=== PATIENT | male | born 1960 | race Two or more races ===

== ENCOUNTER 2022-11-28 08:23 | Outpatient (CLI) | payer BC ==
[2022-11-28 08:58] LABS: HEMATOCRIT 44.4 % (36.7-47.1); MEAN CORPUSCULAR HEMOGLOBIN 31.8 uug (23.8-33.4); MEAN CORPUSCULAR VOLUME 96.1 fL (73.0-96.2); PLATELET COUNT (AUTO) 274 K/uL (152-348)
[2022-11-28 09:23] LABS: BILIRUBIN,DIRECT 0.1 mg/dL (0.0-0.2); BILIRUBIN,TOTAL 0.5 mg/dL (0.2-1.0); POTASSIUM 4.1 mmol/L (3.5-5.1); TOTAL PROTEIN, SERUM 7.9 g/dL (6.4-8.2)
[2022-11-28 09:51] LABS: *BILIRUBIN,URIN 1+ (NEGATIVE); *BLOOD, URINE 3+ (NEGATIVE); *CLARITY,URINE CLOUDY (CLEAR); *COLOR,URINE Brown (YELLOW); *KETONES,URINE 2+ (NEGATIVE); *UROBILINOGEN,URINE 0.2 E.U./dl (NORMAL); LEUKOCYTE ESTERASE ,URINE NEGATIVE (NEGATIVE); NITRITE, URINE NEGATIVE (NEGATIVE); PH,URINE 5.5 (5.0-8.0); UGLUCOSE NEGATIVE (NEGATIVE)
[2022-11-28 11:45] LABS: BACTERIA,URINE MODERATE /HPF (NONE SEEN); RBC,URINE 20-50 /HPF (0-3); SQUAMOUS EPITHELIAL CELL,UR NONE SEEN /HPF (NONE SEEN)
[2022-11-29] MEDS ORDERED: BLOO-1730 MC ×2 (21:17)
[2022-11-29] MEDS ORDERED: SULF1TAB48 PO (21:21)
== END 2022-11-28 23:59 | disposition home or self-care (01) ==
LOC: LAB 08:23
PROVIDERS: ATTEND Physician Assistant
DX: R30.0 Dysuria (principal); E11.8 Type 2 diabetes mellitus with unspecified complications; R31.9 Hematuria, unspecified; E66.9 Obesity, unspecified; R10.9 Unspecified abdominal pain; R03.0 Elevated blood-pressure reading, without diagnosis of hypertension; Z86.16 Personal history of COVID-19
CPT/HCPCS: 36415; 84153; 85025

== ENCOUNTER 2022-11-29 19:07 | Emergency (ER) | payer BC ==
[~2022-11-29] VITALS: Ht 175.3 cm; Wt 86.2 kg
--- NOTE | 2022-11-29 19:40 | NUR ---
PATIENT WALKED TO ER WITH STEADY GAIT C/O DIZZINESS X1.5 WKS AND ABD PAIN X3 WEEKS. PATIENT IS A/OX4, NAD NOTED.
[2022-11-29] MEDS ORDERED: IOHEXOL 300MG/ML 100 ML INFUS..BTL ONE (20:14)
[2022-11-29] MEDS ORDERED: SWABABLE VALVE TRANSFER SET EA MC ONE (20:14)
[2022-11-29] MEDS ORDERED: IV NORMAL SALINE 250 ML IV ONE (20:15)
[2022-11-29] MEDS ORDERED: IV NS 1000 ML 1,000 ML IV ONE (21:00)
[2022-11-29] MEDS ORDERED: BLOO-1730 MC ×2 (21:17)
[2022-11-29] MEDS ORDERED: SULF1TAB48 PO (21:21)
--- NOTE | 2022-11-29 21:37 | NUR ---
Patient discharged to home in stable condition. Written and verbal after care instructions given. Patient and patient's daughter verbalizes understanding of instructions. Stressed follow up or return to ER for worsening s/s. Patient is a/ox4, NAD noted. Ambulatory with steady gait.
[2022-11-29 21:53] VITALS: BP 139/89
== END 2022-11-29 21:54 | disposition home or self-care (01) ==
LOC: ER 19:10
DX: R10.84 Generalized abdominal pain (principal); E11.9 Type 2 diabetes mellitus without complications; K75.81 Nonalcoholic steatohepatitis (NASH); Z79.899 Other long term (current) drug therapy
CPT/HCPCS: A4663; J7040; Q9967

== ENCOUNTER 2023-01-09 06:56 | Outpatient (CLI) | payer BC, OTHER ==
[~2023-01-09 06:56] MED LIST: BLOO-1730 MC; SULF1TAB48 PO
[2023-01-09 08:41] LABS: BILIRUBIN,TOTAL 0.5 mg/dL (0.2-1.0); CREATININE 0.8 mg/dL (0.6-1.3); POTASSIUM 4.3 mmol/L (3.5-5.1); TOTAL PROTEIN, SERUM 7.6 g/dL (6.4-8.2)
[2023-01-09 08:45] LABS: HEMATOCRIT 43.7 % (36.7-47.1); MEAN CORPUSCULAR HEMOGLOBIN 31.3 uug (23.8-33.4); PLATELET COUNT (AUTO) 327 K/uL (152-348)
[2023-01-09 09:01] LABS: *BILIRUBIN,URIN NEGATIVE (NEGATIVE); *BLOOD, URINE NEGATIVE (NEGATIVE); *CLARITY,URINE CLEAR (CLEAR); *COLOR,URINE YELLOW (YELLOW); *KETONES,URINE NEGATIVE (NEGATIVE); *UROBILINOGEN,URINE 0.2 E.U./dl (NORMAL); LEUKOCYTE ESTERASE ,URINE NEGATIVE (NEGATIVE); NITRITE, URINE NEGATIVE (NEGATIVE); PH,URINE 5.5 (5.0-8.0); UGLUCOSE NEGATIVE (NEGATIVE)
[2023-01-10 08:07] LABS: *TESTOSTERONE, SERUM 398 ng/dL (264-916)
== END 2023-01-09 23:59 | disposition home or self-care (01) ==
LOC: LAB 06:56 → RAD 23:59
PROVIDERS: ATTEND Legal Medicine
DX: Z00.00 Encounter for general adult medical examination without abnormal findings (principal); M17.12 Unilateral primary osteoarthritis, left knee
CPT/HCPCS: 36415; 73562; 83550; 84402; 84403; 84550; 85025

== ENCOUNTER 2024-01-01 08:02 | Outpatient (CLI) | payer BC, OTHER ==
[2024-01-01 08:41] LABS: BASOPHILS # (AUTO) 0.1 K/UL (0.0-0.2); BASOPHILS % (AUTO) 1.3 % (0.0-2.0); EOSINOPHILS # (AUTO) 0.1 K/uL (0.0-0.7); EOSINOPHILS % (AUTO) 1.9 % (0.0-7.0); HEMATOCRIT 44.7 % (36.7-47.1); HEMOGLOBIN 15.2 g/dL (12.5-16.3); LYMPHOCYTES # (AUTO) 2.2 K/uL (0.8-4.8); LYMPHOCYTES % (AUTO) 44.9 % (20.5-51.5); MEAN CORPUSCULAR HEMOGLOBIN 32.1 uug (23.8-33.4); MEAN CORPUSCULAR HGB CONC 34 g/dL (32.5-36.3); MONOCYTES # (AUTO) 0.5 K/uL (0.1-1.30); MONOCYTES % (AUTO) 9.6 % (0.0-11.0); NEUTROPHILS # (AUTO) 2.1 K/uL (1.8-8.9); NEUTROPHILS % (AUTO) 42.3 % (38.5-71.5); PLATELET COUNT (AUTO) 269 K/uL (152-348); RED BLOOD CELL COUNT(AUTO) 4.75 MIL/uL (4.06-5.63); RED CELL DISTRIBUTION WIDTH 14.1 % (12.1-16.2)
[2024-01-01 08:46] LABS: DIFFERENTIAL COMMENT 1
[2024-01-01 08:47] LABS: *BILIRUBIN,URIN NEGATIVE (NEGATIVE); *BLOOD, URINE NEGATIVE (NEGATIVE); *CLARITY,URINE CLEAR (CLEAR); *COLOR,URINE YELLOW (YELLOW); *KETONES,URINE NEGATIVE (NEGATIVE); *PROTEIN,URINE NEGATIVE (NEGATIVE); *UROBILINOGEN,URINE 0.2 E.U./dl (NORMAL); LEUKOCYTE ESTERASE ,URINE NEGATIVE (NEGATIVE); NITRITE, URINE NEGATIVE (NEGATIVE); PH,URINE 5.5 (5.0-8.0); UGLUCOSE NEGATIVE (NEGATIVE)
[2024-01-01 09:06] LABS: ERYTHROCYTE SEDIMENTATION RATE 20 MM/HR (0-15)
[2024-01-01 09:20] LABS: THYROID STIMULATING HORMONE 3.046 mIU/mL (0.358-3.740)
[2024-01-01 09:39] LABS: ALBUMIN 3.7 g/dL (3.4-5.0); BILIRUBIN,TOTAL 0.4 mg/dL (0.2-1.0); CALCIUM 9.1 mg/dL (8.5-10.1); CREATININE 0.9 mg/dL (0.6-1.3); POTASSIUM 4.5 mmol/L (3.5-5.1); TOTAL PROTEIN, SERUM 7.8 g/dL (6.4-8.2)
[2024-01-02 08:08] LABS: *TESTOSTERONE, SERUM 406 ng/dL (264-916); FOLATE (FOLIC ACID), SERUM 11.1 ng/mL (>3.0)
[2024-01-04 06:07] LABS: TEST, FREE+WK BOUND 56.8 ng/dL (40.0-250.0)
== END 2024-01-01 23:59 | disposition home or self-care (01) ==
LOC: LAB 08:02
PROVIDERS: ATTEND Legal Medicine
DX: Z00.00 Encounter for general adult medical examination without abnormal findings (principal); E78.00 Pure hypercholesterolemia, unspecified; E11.9 Type 2 diabetes mellitus without complications; R53.1 Weakness; E03.9 Hypothyroidism, unspecified; D64.9 Anemia, unspecified; E55.9 Vitamin D deficiency, unspecified
CPT/HCPCS: 36415; 82746; 83550; 84153; 84402; 84403; 84443; 84550; 85025; 85651

== ENCOUNTER 2024-02-14 14:31 | Inpatient (IN) | payer BC, OTHER ==
[~2024-02-14] VITALS: Ht 162.6 cm; Wt 88.5 kg
[2024-02-14] MEDS ORDERED: ASPI-869 PO (20:00)
[2024-02-14] MEDS ORDERED: DOCU100C36 PO (20:00)
[2024-02-14] MEDS ORDERED: BISA10SU95 RC (20:00)
[2024-02-14] MEDS ORDERED: ATOR40TA PO (20:00)
[2024-02-14] MEDS ORDERED: CLON-418 PO (20:00)
[2024-02-14] MEDS ORDERED: FAMO-132 PO (20:05)
[2024-02-14 20:29] VITALS: BP 134/67; TEMP 98.3; O2SAT 93
[2024-02-14] MEDS ORDERED: LOSA50TA39 PO (20:32)
[2024-02-14] MEDS ORDERED: POLY250017 PO (21:54)
[2024-02-14] MEDS ORDERED: MAG-89 PO (21:54)
[2024-02-14] MEDS ORDERED: TAMS-3 PO (21:54)
[2024-02-14] MEDS ORDERED: METF-494 PO (21:54)
[2024-02-14] MEDS ORDERED: MAGN400O6 PO (21:54)
[2024-02-15] MEDS: OXYCODONE HCL 5 MG TABLET PO PRN (02:05)
[2024-02-15 06:36] VITALS: BP 144/88; TEMP 98.1; O2SAT 95
[2024-02-15] MEDS ORDERED: CLONIDINE HCL 0.1 MG TABLET PO PRN (12:00)
[2024-02-15] MEDS ORDERED: BISACODYL 10 MG SUPP.RECT RC PRN (12:00)
[2024-02-15] MEDS: LOSARTAN POTASSIUM 50 MG TABLET PO SCH (12:52)
[2024-02-15] MEDS: METFORMIN XR 500 MG TAB.SR.24H PO ONE (13:54)
[2024-02-15 16:13] VITALS: BP 139/72; TEMP 99.5; O2SAT 95
[2024-02-15] MEDS: ASPIRIN EC 325 MG TABLET.DR PO SCH (16:22)
[2024-02-15] MEDS: ACETAMINOPHEN 325 MG TABLET PO PRN (16:22)
[2024-02-15] MEDS: DOCUSATE SODIUM 100 MG CAPSULE PO SCH (16:22)
[2024-02-15 19:58] VITALS: BP 119/44; TEMP 98.3; O2SAT 96
[2024-02-15] MEDS: FAMOTIDINE 20 MG TABLET PO SCH (20:08)
[2024-02-15] MEDS: ATORVASTATIN 40 MG TABLET PO SCH (20:08)
[2024-02-15] MEDS: MIRALAX 17 GM POWD.PACK PO SCH (20:08)
[2024-02-15] MEDS: TAMSULOSIN HCL 0.4 MG CAP.SR.24H PO SCH (20:08)
[2024-02-16 06:43] LABS: BASOPHILS % (AUTO) 0.3 % (0.0-2.0); EOSINOPHILS % (AUTO) 0.5 % (0.0-7.0); HEMATOCRIT 33.4 % (36.7-47.1); LYMPHOCYTES # (AUTO) 1.5 K/uL (0.8-4.8); LYMPHOCYTES % (AUTO) 20.9 % (20.5-51.5); MEAN CORPUSCULAR HEMOGLOBIN 30.8 uug (23.8-33.4); MEAN CORPUSCULAR HGB CONC 33 g/dL (32.5-36.3); MEAN CORPUSCULAR VOLUME 93.6 fL (73.0-96.2); MONOCYTES # (AUTO) 0.8 K/uL (0.1-1.30); MONOCYTES % (AUTO) 11.4 % (0.0-11.0); NEUTROPHILS # (AUTO) 4.9 K/uL (1.8-8.9); NEUTROPHILS % (AUTO) 66.9 % (38.5-71.5); PLATELET COUNT (AUTO) 265 K/uL (152-348); RED BLOOD CELL COUNT(AUTO) 3.57 MIL/uL (4.06-5.63); RED CELL DISTRIBUTION WIDTH 13.6 % (12.1-16.2); WHITE BLOOD COUNT (AUTO) 7.4 K/uL (3.6-10.2)
[2024-02-16 06:52] LABS: DIFFERENTIAL COMMENT 1
[2024-02-16 07:09] LABS: THYROID STIMULATING HORMONE 1.374 mIU/mL (0.358-3.740)
[2024-02-16 07:17] LABS: CALCIUM 8.7 mg/dL (8.5-10.1); CREATININE 0.8 mg/dL (0.6-1.3); MAGNESIUM 2.3 mg/dL (1.8-2.4); POTASSIUM 3.9 mmol/L (3.5-5.1)
[2024-02-16] MEDS: METFORMIN XR 500 MG TAB.SR.24H PO SCH (09:49)
[2024-02-16 16:31] VITALS: BP 127/62; TEMP 98.6; O2SAT 97
[2024-02-16] MEDS: ARGININE/GLUTAMINE/CALCIUM BMB 1 EACH POWD.PACK PO SCH (17:40)
[2024-02-16] MEDS: HYDROCORTISONE 1% CREAM 30 GM TUBE TP ONE (18:00)
[2024-02-16] MEDS: HYDROCORTISONE 1% CREAM 30 GM TUBE TP SCH (18:22)
[2024-02-16 20:37] VITALS: BP 130/65; TEMP 98.4; O2SAT 96
[2024-02-16] MEDS ORDERED: HYDROCORTISONE 1% OINT 28.35 GM TUBE TOP SCH (21:00)
[2024-02-17 05:50] VITALS: BP 130/71; TEMP 97.9; O2SAT 96
[2024-02-17] MEDS: ASCORBIC ACID 500 MG TABLET PO SCH (09:36)
[2024-02-17] MEDS: FERROUS SULFATE 325 MG TABEC PO SCH (09:36)
[2024-02-17 12:00] VITALS: BP 137/73; TEMP 97.6; O2SAT 97
[2024-02-17 16:00] VITALS: BP 163/79; TEMP 97; O2SAT 96
[2024-02-17 19:30] VITALS: BP 132/68; TEMP 98.1; O2SAT 95
[2024-02-17] MEDS: MAGNESIUM HYDROXIDE 30 ML LIQUID UDC PO PRN (22:09)
[2024-02-18] MEDS ORDERED: MINERAL OIL/PETROLATUM,WHITE 57 GM TUBE TOP PRN (10:15)
[2024-02-18] MEDS: MINERAL OIL/PETROLATUM,WHITE 57 GM TUBE TOP SCH (11:35)
[2024-02-18 16:11] VITALS: BP 133/66; TEMP 98.4; O2SAT 91
[2024-02-18 19:57] VITALS: BP 122/69; TEMP 99.2; O2SAT 95
[2024-02-19 05:50] VITALS: BP 150/78; TEMP 98; O2SAT 97
[2024-02-19 08:54] VITALS: TEMP 98.2
[2024-02-19 16:13] VITALS: BP 113/62; TEMP 98.5; O2SAT 98
[2024-02-19 20:42] VITALS: BP 139/64; TEMP 98.1; O2SAT 95
[2024-02-20 20:40] VITALS: BP 143/71; TEMP 98.5; O2SAT 97
[2024-02-21 06:17] VITALS: BP 141/80; TEMP 97.9; O2SAT 95
[2024-02-21 16:00] VITALS: BP 140/71; TEMP 99; O2SAT 97
[2024-02-21 20:00] VITALS: BP 131/62; TEMP 98.7; O2SAT 95
[2024-02-22 03:38] VITALS: BP 140/76; TEMP 98.1; O2SAT 94
[2024-02-22 07:08] VITALS: BP 145/83; TEMP 97.9; O2SAT 94
[2024-02-22 15:11] VITALS: BP 124/67; TEMP 98.4; O2SAT 97
[2024-02-22 20:11] VITALS: BP 139/58; TEMP 98.3; O2SAT 97
[2024-02-23 05:09] VITALS: BP 140/75; TEMP 98.2; O2SAT 97
[2024-02-23 09:58] VITALS: BP 138/80
== END 2024-02-23 11:30 | disposition home health service (06) | DRG 561 ==
PROVIDERS: ADMIT Physical Medicine & Rehabilitation Pain Medicine; ATTEND Physical Medicine & Rehabilitation Pain Medicine
DX: Z47.1 Aftercare following joint replacement surgery (principal); E11.9 Type 2 diabetes mellitus without complications; E78.5 Hyperlipidemia, unspecified; I10 Essential (primary) hypertension; N40.0 Benign prostatic hyperplasia without lower urinary tract symptoms; Z96.652 Presence of left artificial knee joint; D64.9 Anemia, unspecified; G89.29 Other chronic pain
CPT/HCPCS: 36415; 83550; 83735; 84443; 85025; 97535-GO-CO; A4663